=== PATIENT | male | born 1980 | race Caucasian/White ===

== ENCOUNTER 2024-04-24 15:31 | Emergency (ER) | payer OTHER, SELFPAY ==
[2024-04-24 15:32] VITALS: BP 131/86; PULSE 72; RESP 16; TEMP 36.5; O2SAT 99
--- NOTE | 2024-04-24 15:51 | W.ED.GENAD ---
Discharge Plan Disposition Patient Disposition: Home Discharge Details Clinical Impression: Closed dislocation of right shoulder Primary Care Provider: [facility] ED Provider: Kristen Lazcano Home Meds and New Rx's Prescriptions: Continued albuterol sulfate 90 mcg/actuation HFA aerosol inhaler 2 puff inhalation Q6H PRN aspirin 81 mg tablet,delayed release (DR/EC) 81 mg PO DAILY atorvastatin 10 mg tablet 10 mg PO DAILY No Action rosuvastatin 10 mg tablet 10 mg PO DAILY Discharge Instructions Instructions: Head injury in adults, Shoulder Dislocation (DC) Referrals: [facility] [Provider Group] Discharge Data Discharge Date/Time-TO BE ENTERED AT DEPARTURE: 04/24/24 16:53 HPI General Date/Time Provider Initiated Documentation: 04/24/24 15:38. HPI Narrative: Jose Carlos is a 43year old male who presents to the emergency department today for evaluation of right shoulder pain. He reports that he was ice-skating when he fell while avoiding hitting a child, landed on his outstretched right arm. He immediately felt pain, was unable to move his arm from his side without significant pain, felt his shoulder was out of place. This was accompanied by nausea and feeling of dizziness while the pain was at its worst, as well as numbness to the arm. He felt his scapular retract while he was resting, with spontaneous reduction of the dislocation and immediate improvement of pain and resolution of numbness. He continues to have a mild aching pain in the anterior shoulder and discomfort with movement of the arm. He denies loss of consciousness, but says that bystanders said that they thought he may have lost consciousness. He denies headache, dizziness, vision changes, neck pain, back pain, chest pain, shortness of breath, vomiting, arm weakness/numbness, other extremity injury. Past medical history is significant for GERD and ASCVD for which he takes baby aspirin and a statin. No family history of connective tissue disorders. No history of previous dislocation to this arm. Physical exam reassuring. Jose Carlos has decreased range of motion due to discomfort. No obvious deformity. No overlying ecchymosis or swelling, lacerations or skin tears. Distal pulses intact. Sensation grossly intact to arm, including axillary nerve. Brisk cap refill. Cranial nerves II through XII intact as tested. PERRL, EOMs intact. No raccoon eyes, drainage from ears or nose, or Prakash sign. Full painless range of motion of neck. No C-spine/T-spine/L-spine step-off/tenderness/deformity. Easy work of breathing. No rib pain with palpation of chest wall. Normal gait. Normal heel toe walk. 5 out of 5 muscle strength upper and lower extremities. History and presentation consistent with traumatic dislocation of shoulder with spontaneous reduction. No concern for neurovascular deficits as a result. X-ray obtained to rule out fracture or Hill-Sachs/Bankart lesion. no red flags on history regarding neck injury, no C-spine CT recommended based on Nexus criteria, however as patient is on anticoagulation head CT is recommended to rule out intracranial hemorrhage. Patient is agreeable with plan of care. I independently interpreted the following tests: R shoulder xray and head CT, no acute abnormalities noted in either. This was confirmed by radiologist. While in the emergency department, Jose Carlos received ice for discomfort and a sling. Reviewed discharge instructions with patient, including symptomatic management and red flags indicating need for return to emergency care. Referral made to [facility] for management. Related Data Home Medications ?Medication ?Instructions ?Recorded ?Confirmed albuterol sulfate 90 mcg/actuation 2 puff inhalation Q6H PRN 12/16/23 04/24/24 aerosol inhaler aspirin 81 mg tablet,delayed 81 mg PO DAILY 12/16/23 04/24/24 release rosuvastatin 10 mg tablet 10 mg PO DAILY 12/16/23 04/24/24 atorvastatin 10 mg tablet 10 mg PO DAILY 04/24/24 04/24/24 Allergies Allergy/AdvReac Type Severity Reaction Status Date / Time No Known Allergies Allergy Verified 04/24/24 15:35 General Stated Complaint: Orthopedic NIMA: 4 Review of Systems Narrative: See HPI Exam Const General: cooperative, healthy appearing, comfortable, no acute distress, well developed and well groomed Nutritional Appearance: average body habitus and well nourished Orientation: alert and oriented x3 HENMT Head: normal to inspection and normocephalic Ears: hearing grossly normal bilaterally General nose exam: external nose normal Face and sinus: normal facial exam Eyes Pupils: PERRL EOM: EOM intact bilaterally Neck Neck: normal visual inspection and full ROM Chest Chest: normal inspection of the chest and normal palpation of entire chest wall Resp Effort & Inspection: normal respiratory effort and able to speak in complete sentences Back/Spine/Pelvis Cervical Spine: normal cervical lordosis and cervical ROM normal Thoracic/Lumbar Spine: thoracic and lumbar spine normal to inspection Skin General skin exam: no rashes or lesions noted Trauma: no lacerations or abrasions Neuro General: patient alert, patient oriented x3, gait normal, tone normal, moves all extremities and no focal motor deficits Cranial Nerves: CN's II-XI intact bilaterally, PERRL, EOM intact bilaterally, no nystagmus and facial strength normal Gait: normal gait Motor: muscle tone normal throughout and strength 5/5 throughout Sensory Exam: no sensory deficits noted Coordination: Romberg test normal, tandem gait normal and Does not sway with eyes open Extrem Right upper extremity: shoulder/upper arm Details: axillary nerve sensory function normal and abnormal ROM Details: held in an abnormal fashion Details: in ADduction; no tenderness, no swelling, no abrasions, no lacerations, no ecchymosis, no crepitus, no foreign bodies, no penetrating wound, no deformity and no unusual warmth Left upper extremity: normal to inspection Course Vital Signs Vital signs: Vital Signs Temperature 36.5 C 04/24/24 15:32 Pulse 72 04/24/24 15:32 Respiratory Rate 16 04/24/24 15:32 Blood Pressure 131/86 04/24/24 15:32 Pulse Oximetry 99 04/24/24 15:32 Temperature 36.5 C 04/24/24 15:32 Temperature Source Oral 04/24/24 15:32 Pulse 72 04/24/24 15:32 Respiratory Rate 16 04/24/24 15:32 Blood Pressure 131/86 04/24/24 15:32 Blood Pressure Position Sitting 04/24/24 15:32 Pulse Oximetry 99 04/24/24 15:32 Oxygen Delivery Method Room Air 04/24/24 15:32 Oxygen Flow Rate 0 04/24/24 15:32 Pain Level 5 04/24/24 15:40 Medical Decision Making Imaging Data Radiologic Study: Radiologist's impression: PROCEDURE INFORMATION: Exam: CT Head Without Contrast Exam date and time: 04/24/2024 4:05 PM Age: 43 years old Clinical indication: Injury or trauma; Fall; Other: Head strike, ? loc, on asa TECHNIQUE: Imaging protocol: Computed tomography of the head without contrast. COMPARISON: No relevant prior studies available. FINDINGS: Brain: Midline and left retro cerebellar extra-axial fluid is likely thin arachnoid cyst. There is no acute intracranial hemorrhage. No extra-axial fluid collection. No evidence of acute infarct. Art white differentiation is intact. There is no evidence of intra-axial mass. There is no mass effect or midline shift. Cerebral ventricles: No ventriculomegaly. Paranasal sinuses: Tiny retention cyst or polyp in left maxillary sinus and a right mid ethmoid air cell. Mucosal thickening in right greater than left sphenoid sinuses. Mastoid air cells: No significant mastoid effusion. Bones: Unremarkable. No acute fracture. Soft tissues: Unremarkable as visualized. IMPRESSION: No evidence of acute intracranial abnormality. No acute hemorrhage. No evidence of acute infarct or mass. Radiologic Study #2: Radiologist's impression: PROCEDURE INFORMATION: Exam: CT Head Without Contrast Exam date and time: 04/24/2024 4:05 PM Age: 43 years old Clinical indication: Injury or trauma; Fall; Other: Head strike, ? loc, on asa TECHNIQUE: Imaging protocol: Computed tomography of the head without contrast. COMPARISON: No relevant prior studies available. FINDINGS: Brain: Midline and left retro cerebellar extra-axial fluid is likely thin arachnoid cyst. There is no acute intracranial hemorrhage. No extra-axial fluid collection. No evidence of acute infarct. Art white differentiation is intact. There is no evidence of intra-axial mass. There is no mass effect or midline shift. Cerebral ventricles: No ventriculomegaly. Paranasal sinuses: Tiny retention cyst or polyp in left maxillary sinus and a right mid ethmoid air cell. Mucosal thickening in right greater than left sphenoid sinuses. Mastoid air cells: No significant mastoid effusion. Bones: Unremarkable. No acute fracture. Soft tissues: Unremarkable as visualized. IMPRESSION: No evidence of acute intracranial abnormality. No acute hemorrhage. No evidence of acute infarct or mass. Quality:SDOH Health Related Social Needs: No Data to Display PFSH All Active Problems (Updated 04/24/24 @ 15:51 by Kristen Nichols) Closed dislocation of right shoulder (Acute) Family history of malignant neoplasm of colon in relative diagnosed when younger than 50 years of age (Acute) Lipoma (Acute) Gastro-esophageal reflux disease without esophagitis (Acute) Cervicalgia (Acute) Atherosclerotic heart disease [place] coronary artery w/angina pectoris (Acute) Medical History (Updated 04/24/24 @ 15:51 by Kristen Nichols) Unspecified osteoarthritis, unspecified site Low back pain, unspecified Contact with and (suspected) exposure to other hazardous substances Social History Smoking/Tobacco Use Status: Never Smoking risk assessment performed?: Yes Alcohol Intake: current Alcohol Intake frequency: a few times a month Drug use: Never Substance use type: does not use Do you feel safe at home: Yes Do you feel safe in your relationship?: Yes PAWSS Have you Been Recently Intoxicated or Drunk Within the Last 30 days?: No Have you Ever Experienced Previous Episodes of Alcohol Withdrawal?: No Have you ever Experienced Withdrawal Seizures?: No Have you ever Experienced Delirium Tremens(DT)s?: No Have you ever undergone Alcohol Rehabilitation Treatment (i.e, inpt ot outpatient treatment programs)?: No Have you ever Experienced Blackouts?: No Have you ever Combined Alcohol with other Downers within the last 90 days?: No Have you ever Combined Alcohol with any other Substance of Abuse during the last 90 days?: No Positive Blood Alcohol level on Presentation? [PCS.BAL]: No Evidence of Increased Autonomic Activity (i.e. HR>120, tremor, sweating, agitation, nausea)?: No Result: 0
--- NOTE | 2024-04-24 16:00 | DI.CT_ITS ---
Exam(s) CT HEAD WO EXAM: CT HEAD WO CLINICAL HISTORY: head strike, ? LOC, on ASA. TECHNIQUE: Imaging Protocol: Axial computed tomography images with coronal and sagittal reformatted images were created and reviewed COMPARISON: No exams were available for comparison FINDINGS: Ventricles and Extra axial spaces: Normal in size and morphology for the patient's age. Hemorrhage: None. Cerebral parenchyma: No evidence of acute infarct or mass. Midline shift: None. Brainstem/Cerebellum: Normal. Calvarium: Normal. Visualized Paranasal sinuses:Clear tiny mucous retention cyst on in the left maxillary sinus and mild mucosal thickening in the right sphenoid sinus. Mastoids: Clear. Soft Tissues: Unremarkable. ORBITS: Unremarkable. PITUITARY: Not enlarged. IMPRESSION: No acute intracranial process. RADIATION DOSE DELIVERED: 915.69mGy.cm Total DLP DATA REPOSITORY: All CT scans at this facility are submitted to the National Radiology Data Registry (NRDR) Dose Index Registry (DIR) with the [employer] (ACR). RADIATION OPTIMIZATION: All CT scans at this facility use at least one of these dose optimization te chniques: automated exposure control; mA and/or kV adjustment per patient size (includes targeted exa ms where dose is matched to clinical indication); or iterative reconstruction.
--- NOTE | 2024-04-24 16:03 | DI.RAD_ITS ---
Exam(s) XR SHOULDER RT COMPLETE 2+V EXAM: XR SHOULDER RT COMPLETE 2+V CLINICAL HISTORY: ? reduction and reduction of R shoulder. TECHNIQUE: 2D digital imaging was performed of the right shoulder. Five images were obtained. AP, Grashey, Y-view and axillary views were obtained. COMPARISON: No exams were available for comparison FINDINGS: BONES: No acute fracture is present. No bony destructive lesion is seen. JOINTS: No dislocation present. SOFT TISSUE: Normal. IMPRESSION: Unremarkable radiographs of the right shoulder. DATA REPOSITORY: RADIATION DOSE DELIVERED:
--- NOTE | 2024-04-24 16:19 | DI.VRAD_ITS ---
PROCEDURE INFORMATION: Exam: CT Head Without Contrast Exam date and time: 04/24/2024 4:05 PM Age: 43 years old Clinical indication: Injury or trauma; Fall; Other: Head strike, ? loc, on asa TECHNIQUE: Imaging protocol: Computed tomography of the head without contrast. COMPARISON: No relevant prior studies available. FINDINGS: Brain: Midline and left retro cerebellar extra-axial fluid is likely thin arachnoid cyst. There is no acute intracranial hemorrhage. No extra-axial fluid collection. No evidence of acute infarct. Art white differentiation is intact. There is no evidence of intra-axial mass. There is no mass effect or midline shift. Cerebral ventricles: No ventriculomegaly. Paranasal sinuses: Tiny retention cyst or polyp in left maxillary sinus and a right mid ethmoid air cell. Mucosal thickening in right greater than left sphenoid sinuses. Mastoid air cells: No significant mastoid effusion. Bones: Unremarkable. No acute fracture. Soft tissues: Unremarkable as visualized. IMPRESSION: No evidence of acute intracranial abnormality. No acute hemorrhage. No evidence of acute infarct or mass. Dictated and Authenticated by: Shereen Howard MD. Ordering:FARIBA Peterson MD
--- NOTE | 2024-04-24 16:20 | DI.VRAD_ITS ---
PROCEDURE INFORMATION: Exam: XR Right Shoulder Exam date and time: 04/24/2024 3:53 PM Age: 43 years old Clinical indication: Injury or trauma; Other: ? Reduction of R shoulder; Injury details: Patient reports falling on ice and landing on shoulder TECHNIQUE: Imaging protocol: Radiologic exam of the right shoulder. Views: 2 or more views. COMPARISON: No relevant prior studies available. FINDINGS: Bones/joints: There is no evidence of acute fracture. No dislocation. Soft tissues: Normal. IMPRESSION: No evidence of fracture or dislocation. Dictated and Authenticated by: Shereen Howard MD. Ordering:FARIBA Peterson MD
[2024-04-24 16:46] VITALS: BP 131/87; PULSE 81; RESP 19; O2SAT 97
== END 2024-04-24 16:53 | disposition home or self-care (01) ==
LOC: ER 16:30
PROVIDERS: Emergency Provider Nurse Practitioner Family
DX: S43.004A Unspecified dislocation of right shoulder joint, initial encounter (principal); V00.211A Fall from ice-skates, initial encounter
CPT/HCPCS: 99284; 70450; 73030

== ENCOUNTER 2024-06-01 03:06 | Outpatient (CLI) | payer OTHER, SELFPAY ==
--- NOTE | 2024-06-01 08:25 | DI.MRI_ITS ---
Exam(s) MR UPPER JOINT RT WO EXAM: MR UPPER JOINT RT WO CLINICAL HISTORY: R SHOULDER PAIN, INJURY,closed dislocation rt shoulder,m25.511,[id number]. TECHNIQUE: Multiplanar multisequence MRI was performed. COMPARISON: MR MRI UPPER EXT ANY JOINT W CONTRAST from 03/22/2024 CR,XR XR SHOULDER RT COMPLETE 2+V from 04/24/2024 FINDINGS: BONES: There is a Hill-Sachs deformity in the humeral head consistent with prior anterior shoulder di slocation. There is mild marrow edema. JOINTS: Mild degenerative changes are seen at the acromioclavicular joint. The glenohumeral joint is normal. TENDONS: Supraspinatus: Unremarkable. Infraspinatus: Unremarkable. Subscapularis: Unremarkable. Teres [place]: Unremarkable. Biceps and [place]: Unremarkable. MUSCLES: Unremarkable. GLENOID LABRUM: There is hyperintense signal seen at the anterior inferior labrum suspicious for tear . SOFT TISSUES: Unremarkable. LIGAMENTS: Unremarkable. OTHER: Subacromial and subdeltoid bursae are unremarkable. IMPRESSION: 1. For intense signal seen in the anterior inferior labrum consistent with a tear/Bankart lesion. MR arthrogram may be obtained for further characterization. 2. Hill-Sachs deformity involving the humeral head. 3. No evidence of a rotator cuff tear. DATA REPOSITORY:
== END 2024-06-01 03:26 ==
PROVIDERS: PCP Family Medicine; Visit Provider Student in an Organized Health Care Education/Training Program
DX: S43.004A Unspecified dislocation of right shoulder joint, initial encounter (principal); M25.511 Pain in right shoulder; X58.XXXA Exposure to other specified factors, initial encounter
CPT/HCPCS: 73221

== ENCOUNTER 2024-11-20 08:17 | Emergency (ER) | payer OTHER, SELFPAY ==
[2024-11-20 08:28] VITALS: BP 142/73; PULSE 70; RESP 18; O2SAT 98
--- NOTE | 2024-11-20 09:00 | DI.RAD_ITS ---
Exam(s) XR ANKLE RT COMPLETE EXAM: XR ANKLE RT COMPLETE CLINICAL HISTORY: pain over achilles tendon. TECHNIQUE: 2D digital imaging was performed of the right ankle. Three images were obtained. AP, lateral and oblique views were obtained. COMPARISON: No exams were available for comparison FINDINGS: BONES: No acute fracture is present. No bony destructive lesion is seen. There is an enthesophyte at the posterior calcaneus. There is a horizontal lucency through the enthesophyte. It appears corticated on either side of the lucency suggesting a chronic abnormality. JOINTS: The ankle mortise is normally aligned. SOFT TISSUE: Normal. There is no significant soft tissue swelling seen posteriorly. No radiopaque foreign body is identified. IMPRESSION: No definite acute abnormality is seen on this examination. If there is concern for internal derangement, an MRI should be considered for further evaluation. DATA REPOSITORY: RADIATION DOSE DELIVERED:
[2024-11-20] MEDS: Baclofen 10 MG TAB PO (09:13)
[2024-11-20 10:11] VITALS: BP 133/82; PULSE 88; RESP 18; TEMP 36.4; O2SAT 99
--- NOTE | 2024-11-20 14:39 | W.ED.GENAD ---
Discharge Plan Discharge Details Chief Complaint: Orthopedic Primary Care Provider: Ian Gottlieb ED Provider: Skyla More Home Meds and New Rx's Prescriptions: New oxycodone 5 mg tablet 5 mg PO HS Qty: 2 0RF baclofen 10 mg tablet 10 mg PO TID Qty: 12 0RF Continued albuterol sulfate 90 mcg/actuation HFA aerosol inhaler 2 puff inhalation Q6H PRN rosuvastatin 10 mg tablet 10 mg PO DAILY aspirin 81 mg tablet,delayed release (DR/EC) 81 mg PO DAILY Discharge Instructions Additional Instructions: Take the oxycodone at night as needed for uncontrolled pain Lidoderm patch as prescribed Baclofen 3 times daily as needed Motrin and Tylenol per package instructions Follow-up with Dr. Tom I placed a referral Wear your boot and crutches Please return should you have new or worsening complaints Referrals: Abisai Tom MD [ [facility], Orthopaedic Surgical] Discharge Data Discharge Date/Time-TO BE ENTERED AT DEPARTURE: 11/20/24 10:32 HPI General Date/Time Provider Initiated Documentation: 11/20/24 08:34. HPI Narrative: 43-year-old male with hyperlipidemia and Achilles tendinitis presents with acute Achilles tendon pain. Pain is severe, disrupts sleep, and impairs walking. No calf pain or swelling. Pain localized to previous tendinopathy site. Can flex and extend foot. No relief from Motrin and Tylenol. Related Data Home Medications ?Medication ?Instructions ?Recorded ?Confirmed albuterol sulfate 90 mcg/actuation 2 puff inhalation Q6H PRN 12/16/23 11/20/24 aerosol inhaler aspirin 81 mg tablet,delayed 81 mg PO DAILY 12/16/23 11/20/24 release rosuvastatin 10 mg tablet 10 mg PO DAILY 12/16/23 11/20/24 baclofen 10 mg tablet 10 mg PO TID #12 tabs 11/20/24 oxycodone 5 mg tablet 5 mg PO HS #2 tabs 11/20/24 Previous Rx's ?Medication ?Instructions ?Recorded baclofen 10 mg tablet 10 mg PO TID #12 tabs 11/20/24 oxycodone 5 mg tablet 5 mg PO HS #2 tabs 11/20/24 Allergies Allergy/AdvReac Type Severity Reaction Status Date / Time No Known Allergies Allergy Verified 11/20/24 08:31 General Stated Complaint: Orthopedic NIMA: 4 Exam Narrative Exam Narrative: General Appearance: Alert and oriented. Vital signs: Within normal limits. HEENT: Within normal limits. Respiratory: Within normal limits. Back, Musculoskeletal: No calf tone, swelling, or tenderness. Extremities: Swelling and exquisite tenderness over Achilles tendon. No heel tenderness. Negative Orr test. Neurovascularly intact. Skin: Warm and dry, no rash. Neurological: Normal. Course Vital Signs Vital signs: Vital Signs Pulse 70 11/20/24 08:28 Respiratory Rate 18 11/20/24 08:28 Blood Pressure 142/73 H 11/20/24 08:28 Pulse Oximetry 98 11/20/24 08:28 Temperature 36.4 C L 11/20/24 10:11 Temperature Source Tympanic 11/20/24 10:11 Pulse 88 11/20/24 10:11 Respiratory Rate 18 11/20/24 10:11 Blood Pressure 133/82 11/20/24 10:11 Blood Pressure Mean 99 11/20/24 10:11 Pulse Oximetry 99 11/20/24 10:11 Oxygen Delivery Method Room Air 11/20/24 10:11 Oxygen Flow Rate 0 11/20/24 10:11 Medical Decision Making X-ray of ankle shows no acute abnormality. Per radiology interpretation my review Initial Assessment: 43-year-old male with history of hyperlipidemia and Achilles tendinitis presents with acute pain in Achilles tendon, disrupting sleep and impairing walking. Pain in similar location to prior Achilles tendinopathy. Exam shows swelling and tenderness over Achilles tendon, no calf swelling or tenderness. Differential Diagnosis: - Achilles tendon rupture: Low suspicion based on negative Orr test and x-ray results. - DVT: Clinical suspicion. ED Course: - Ordered x-ray of ankle, reviewed by me, showing no acute abnormality. - Provided boot and crutches. - Prescribed baclofen, diclofenac, lidocaine. - Supplied 2 tablets of oxycodone for nighttime pain. - Encouraged [id number] Motrin. - Orthopedic referral for possible outpatient MRI at orthopedics discretion. - Reviewed return precautions, patient expressed understanding. Final Assessment: Acute Achilles tendon pain with swelling and tenderness, low suspicion for rupture based on x-ray and exam. Clinical suspicion for DVT. Treatment includes pain management and orthopedic referral. Clinical Impression: - Acute Achilles tendon pain - Low suspicion for Achilles tendon rupture - Clinical suspicion for DVT Disposition: - Discharge - Orthopedic referral for possible MRI MDM Components Evaluation: - Number of Differential Diagnoses or Management Options: Achilles tendon rupture, DVT - Amount and Complexity of Data Reviewed: X-ray reviewed by me, consultation with Dr. Tom - Risk of Complication and Morbidity or Mortality: Low suspicion for Achilles tendon rupture, clinical suspicion for DVT PFSH All Active Problems (Updated 06/08/24 @ 09:45 by SUMMER Maxwell) Tear of distal tendon of biceps (Acute) Tear of right glenoid labrum (Acute) Family history of malignant neoplasm of colon in relative diagnosed when younger than 50 years of age (Acute) Lipoma (Acute) Gastro-esophageal reflux disease without esophagitis (Acute) Cervicalgia (Acute) Atherosclerotic heart disease [place] coronary artery w/angina pectoris (Acute) Medical History (Updated 06/08/24 @ 09:45 by SUMMER Maxwell) Unspecified osteoarthritis, unspecified site Low back pain, unspecified Contact with and (suspected) exposure to other hazardous substances Social History Smoking/Tobacco Use Status: Never Smoking risk assessment performed?: Yes Alcohol Intake: current Alcohol Intake frequency: a few times a month Drug use: Never Substance use type: does not use Do you feel safe at home: Yes Do you feel safe in your relationship?: Yes PAWSS Have you Been Recently Intoxicated or Drunk Within the Last 30 days?: No Have you Ever Experienced Previous Episodes of Alcohol Withdrawal?: No Have you ever Experienced Withdrawal Seizures?: No Have you ever Experienced Delirium Tremens(DT)s?: No Have you ever undergone Alcohol Rehabilitation Treatment (i.e, inpt ot outpatient treatment programs)?: No Have you ever Experienced Blackouts?: No Have you ever Combined Alcohol with other Downers within the last 90 days?: No Have you ever Combined Alcohol with any other Substance of Abuse during the last 90 days?: No Positive Blood Alcohol level on Presentation? [PCS.BAL]: No Evidence of Increased Autonomic Activity (i.e. HR>120, tremor, sweating, agitation, nausea)?: No Result: 0
--- NOTE | 2024-11-23 17:10 | NUR.NOTE ---
Addendum entered by Shereen Laura 12/13/24 07:33: Access chart today to print the information of all three of his insurances to fax to [facility]. Addendum entered by Shereen Laura 12/07/24 09:50: Access chart today to print the demographic sheet and the provider note for [facility] billing purposes. Original Note: Acces chart to determine what the ortho product was that was dispensed to patient. It was crutches. Nursing Note:
== END 2024-11-20 10:32 | disposition home or self-care (01) ==
PROVIDERS: Emergency Provider Physician Assistant; PCP Family Medicine
DX: M76.62 Achilles tendinitis, left leg (principal); E78.5 Hyperlipidemia, unspecified; Z79.82 Long term (current) use of aspirin
CPT/HCPCS: 99283; 73610

== ENCOUNTER 2024-12-27 01:55 | Outpatient (CLI) | payer OTHER, SELFPAY ==
--- NOTE | 2024-12-27 06:15 | DI.MRI_ITS ---
Exam(s) MR LOWER JOINT RT WO EXAM: MR LOWER JOINT RT WO CLINICAL HISTORY: R ACHILLES TENDINOPATHY/PARTIAL TEARING,ANKLE PAIN,[id number] TECHNIQUE: Multiplanar multisequence MRI was performed without intravenous contrast. COMPARISON: CR XR ANKLE RT COMPLETE from 11/20/2024 FINDINGS: BONES/JOINTS: No fracture or contusion pattern. No bone lesions identified. The talar dome is smooth. The ankle mortise is maintained. No joint effusion is present. LIGAMENTS: The tibiofibular and calcaneofibular ligaments are intact. The talofibular ligaments are intact. The deltoid ligament is intact. The syndesmosis is unremarkable. Sinus tarsi is normal. MUSCULOTENDINOUS STRUCTURES: Achilles tendon: There is fusiform thickening and a convex anterior margin in the mid substance of the Achilles tendon centered approximately 5 cm above its insertion site onto the calcaneus. There is heterogeneous signal within the tendon at this level including hyperintense signal on the T2 weighted images. The findings are most suggestive of a partial tear of the tendon. Symptom is considered less likely but should be considered. There is no evidence of a full-thickness Achilles tendon tear. Plantar fascia: Unremarkable. Anterior Extensor tendons: Unremarkable. Posterior Tibialis: Unremarkable. Flexor Digitorum longus: Unremarkable. Flexor Hallucis longus: Unremarkable. Peroneus longus: Unremarkable. Peroneus brevis:Unremarkable. SOFT TISSUES: Unremarkable. OTHER FINDINGS: None. IMPRESSION: Findings most suggestive of a partial tear of the Achilles tendon. DATA REPOSITORY:
== END 2024-12-27 02:15 ==
PROVIDERS: PCP Family Medicine; Visit Provider Student in an Organized Health Care Education/Training Program
DX: M76.61 Achilles tendinitis, right leg
CPT/HCPCS: 73721

== ENCOUNTER 2025-04-11 10:54 | Outpatient (CLI) | payer OTHER, SELFPAY ==
[2025-04-11 09:01] LABS: ALT 40 U/L (10-49); AST 27 U/L (<34); Albumin 4.7 g/dL (3.2-5.0); Alkaline Phosphatase 150 U/L (46-116); Anion Gap 9.2 mmol/L (3-11); BUN 12 mg/dL (9-23); Bilirubin, Total 0.9 mg/dL (0.2-1.2); CO2 27.8 mmol/L (20.0-31.0); Calcium 9.1 mg/dL (8.3-10.6); Chloride 104 mmol/L (98-107); Glucose 98 mg/dL (74-106); Potassium 4.6 mmol/L (3.5-5.1); Sodium 141 mmol/L (136-145); Total Protein 7.9 g/dL (5.7-8.2)
[2025-04-14 17:12] LABS: Apolipoprotein B, Serum 90 mg/dL; Beta VLDL Cholesterol Not Detected mg/dL (<15); Beta VLDL Triglycerides Not Detected mg/dL (<15); Cholesterol, Total, CDC 202 mg/dL; Chylomicron Cholesterol Not Detected; Chylomicron Triglycerides Not Detected; HDL Cholesterol, CDC 57 mg/dL (>=40); LpX Not detected; Triglycerides, CDC 107 mg/dL; VLDL Triglycerides 62 mg/dL (<120)
== END 2025-04-11 10:55 | disposition home or self-care (01) ==
LOC: LBO 10:54
PROVIDERS: PCP Family Medicine; Visit Provider Family Medicine
DX: I25.119 Atherosclerotic heart disease of native coronary artery with unspecified angina pectoris (principal)
CPT/HCPCS: 36415; 80053; 80061; 83695; 82172; 82664